=== PATIENT | male | born 1940 | race Caucasian/White ===

== ENCOUNTER 2019-06-26 10:35 | Outpatient (CLI) | payer MEDICARE, OTHER ==
[~2019-06-26] VITALS: Ht 170.2 cm; Wt 80.9 kg
--- NOTE | ~2019-06-26 | HEMODYNAMI ---
PATIENT:JAVAD LEMOS MEDICAL RECORD: [id number] : 36 LOCATION:[facility] ADMISSION DATE: 06/26/19 Generatedon:06/26/201913:25 Patient name: JAVAD LEMOS Patient #: [id number] SSN: D OB: 1940 Date of study: 06/26/2019 Page: Of Hemodynamic Procedure Report Patient Data Patient Demographics Procedure consent was obtained First Name: JAVAD Gender: Male Last Name: CANELO : 1940 [facility] Initial: E Age: 79 year(s) Patient #: [id number] Race: Additional ID: [id number] Contact details [address]: [address] [place] [address] State: [place] City: [place] Zip code: [address] Past Medical History Allergies: No known allergies Admission Admission Data Admission Date: 06/26/2019 Admission Time: 10:35 Admit Source: Other Procedure Procedure Types Cath Procedure Diagnostic Procedure Cardioversion External Procedure Description Procedure Date Procedure Date: 06/26/2019 Procedure Start Time: 13:11 Procedure End Time: 13:22 Procedure Staff Name Function León Sanchez MD Performing Physician Ronny Lewis RN Nurse Jonathon Aguilera RT Monitor Lalo Paul RN Monitor Dusty Alejo MD Additional personnel Procedure Data Procedure Complications No complications Procedure Medications Medication Administration Route Dosage Oxygen etCO2 Nasal cannula 2 l/min Refer to Anesthesia Notes for Sedation Medications Hemodynamics Rest Heart Rate: 61 (bpm) Snapshots Pre Cath Intra NCS Post Cath Vital Signs Time Heart Resp SPO2 etCO2 NIBP Rhythm Pain Sedation Rate (ipm) (%) (mmHg) (mmHg) Status Level (bpm) 13:10:14 72 13 100 26.3 124/67(0) NSR (Missing) 10(A) 13:12:30 42 14 88 21.8 96/54(85) NSR (Missing) 9(A) 13:13:47 54 11 98 27.8 110/67(91) NSR (Missing) 9(A) 13:17:16 52 15 99 26.3 98/65(81) NSR (Missing) 10(A) 13:21:24 51 10 99 43.6 104/62(81) NSR (Missing) 10(A) Medications Time Medication Route Dose Verified Delivered Reason Notes Effective ness by by 13:05:10 Oxygen etCO2 2 León Buffie used for Nasal l/min Daniel Paul RN procedure cannula 13:05:53 Refer to León Lalo Anesthesia Daniel Paul RN Notes for Sedation Medications Procedure Log Time Note 12:40:04 Lalo Paul RN sent for patient. Start room use. 12:47:14 Informed consent obtained and on chart 12:47:23 Admit Source: Other 12:47:56 Procedure Status Cardioversion. 12:47:58 Time tracking: Regular hours (M-F 7:00 - 5:00) 12:48:01 Plan of Care:Hemodynamics will remain stable., Cardiac rhythm will remain stable., Comfort level will be maintained., Respiratory function will remain adequate., Patient/ family verbilizes understanding of procedure., Procedure tolerated without complication., Recovers from procedure without complications.. 12:50:01 H&P Date Dictated: 06/20/2019 Within 30 days and on chart., H&P Addendum completed by physician on day of procedure. (MUST COMPLETE FOR ALL OUTPATIENTS). 12:50:13 Patient allergic to No known allergies 12:59:04 Patient arrived from Pre/Post Procedure Room to CCL 3. Patient remains on bed/stretcher for procedure. 12:59:05 Warm blankets applied, and devin hugger turned on for patient comfort. 12:59:06 Correct patient and procedure confirmed by team. 12:59:07 ECG and BP/O2 sat monitors applied to patient. 13:00:36 Quick Combo opened to sterile field. 13:00:51 Pre-procedure instructions explained to patient. 13:00:52 Pre-op teaching completed and patient verbalized understanding. 13:00:54 Family in patients room. 13:00:56 Patient NPO since Midnight. 13:05:10 Oxygen 2 l/min etCO2 Nasal cannula was administered by Lalo Paul RN; used for procedure; 13:05:53 Refer to Anesthesia Notes for Sedation Medications was administered by Lalo Paul RN; ; 13:06:54 Dusty Alejo MD present and monitoring patient for TIVA. 13:07:02 Vital chart was started 13:07:04 Baseline sample Acquired. 13:07:28 Rhythm: atrial fibrillation 13:07:30 Full Disclosure recording started 13:07:38 Is the patient allergic to Iodine/contrast media? No. 13:07:40 Is patient on blood thinner?Yes 13:07:45 ACC The patient was administered the following blood thiners within the last 24 hours: Xarelto 13:07:47 Patient diabetic? Yes. 13:07:48 If diabetic: On Metformin? Yes 13:07:51 If on Metformin: Last Dose? 06/26/2019 13:07:54 Previous problem with sedation/anesthesia? No ? 13:07:55 Snore? Yes 13:07:58 Sleep apnea? Yes 13:07:59 Deviated septum? No 13:08:00 Opens mouth fully? Yes 13:08:01 Sticks out tongue? Yes 13:08:03 Airway obstruction? No ? 13:08:06 Dentures? No ? 13:08:13 Patient pain scale 0/10 ?. 13:08:22 IV patent on arrival in left forearm with 0.9% NaCl at KVO. 13:08:24 Lab results completed and on chart. 13:08:29 Alarms reviewed by Yesenia Langley 13:08:37 Quick combo pads placed on patients chest and back. 13:08:52 --------ALL STOP TIME OUT------ 13:08:53 Final Timeout: patient, procedure, and site verified with staff and physician. All members of the team are in agreement. 13:09:00 Physical assessment completed. ASA score P 3 - A patient with severe systemic disease as per León Sanchez MD. 13:09:03 Sedation plan: TIVA Medication:Propofol 13:11:16 Procedure started. 13:11:28 Defibrillator synced and charged to 200 Joules. 13:12:03 Shock delivered. 13:12:14 Patient cardioverted to sinus rhythm . 13:13:06 Procedure ended.(Physican Out) 13:14:38 Post-procedure physical assessment completed. ASA score P 3 - A patient with severe systemic disease as per León Sanchez MD. 13:16:20 Post procedure rhythm: sinus bradycardia 13:16:25 Post procedure instruction explained to patient.Patient verbalizes understanding. 13:16:26 Patient needs reinforcement of post procedure teaching. 13:16:37 Procedure and supply charges have been captured, reviewed, submitted and are correct. 13:16:39 Procedure Complication : No complications 13:22:31 Vital chart was stopped 13:22:32 See physician's report for complete and final results. 13:22:34 Report given to Pre/Post Procedure Room. 13:22:37 Patient transfered to Pre/Post Procedure Room with Stretcher. 13:22:40 Procedure ended. 13:22:40 Full Disclosure recording stopped 13:22:48 End room use (Document Last) Device Usage Item Manufacture Quantity Catalog Hospital Part Current Minimal Lot# / Name Number Charge Number [facility] [place] ct# Code [facility] 1 [id number] Combo Signature Audit [place] Stage Time Signature Unsigned Intra-Procedure 06/26/2019 Jonathon Aguilera 1:24:54 PM RT(R) Signatures Performing Physician : Signature : León Sanchez MD Date : Time : Nurse : Ronny Lewis Signature : RN Date : Time : Monitor : Jonathon Aguilera RT Signature : Date : Time : Monitor : Lalo Paul RN Signature : Date : Time : [facility] [address] [place] [address]
[~2019-06-26 10:35] MED LIST: BABY ASPIRIN81 MG PO; COLACE100 MG PO; CORDARONE200 MG PO; FISH OIL 1,2001 CAP PO; GLUCOPHAGE500 MG PO; LEVOTHROID75 MCG PO; PLAVIX75 MG PO; SENOKOT-S TABLE1 TAB PO; TOPROL XL25 MG PO; ZOCOR40 MG PO
[2019-06-26] MEDS ORDERED: BETAPACE 80 MG80 MG PO (11:02)
[2019-06-26] MEDS ORDERED: PRAVACHOL20 MG PO (11:02)
[2019-06-26] MEDS ORDERED: XARELTO15 MG PO (11:05)
[2019-06-26 11:19] VITALS: BP 146/87; Ht 170.2 cm; Wt 80.9 kg
[2019-06-26 11:25] LABS: BASOPHILS 0.8 % (0-2); EOSINOPHILS 4.8 % (0-7); HEMATOCRIT 43.7 % (42.0-54.0); HEMOGLOBIN 14.8 g/dL (13.5-17.5); IMMATURE GRANULOCYTES 0.4 % (0-5); LYMPHOCYTES 42.9 % (15-50); MCHC 33.9 g/dL (31.0-37.0); MCV 88.5 fL (80.0-100.0); MEAN PLATELET VOLUME 9.8 fL (7.4-10.4); MONOCYTES 11.7 % (2-11); NEUTROPHILS 39.4 % (40-80); PLATELET COUNT 158 10x3/uL (130-400); RBC 4.94 10x6/uL (4.20-6.10); RDW 14.2 % (11.5-14.5); WBC 5.2 10x3/uL (4.8-10.8)
[2019-06-26 11:33] LABS: CALC OSMOLALITY 281 mosm/kg (275-300); CARBON DIOXIDE 31.4 mmol/L (21.0-32.0); CHLORIDE - SERUM 102 mmol/L (98-107); GLUCOSE 138 mg/dL (74-106); POTASSIUM - SERUM 4.4 mmol/L (3.5-5.1); SODIUM 139 mmol/L (136-145); UREA NITROGEN 17 mg/dL (7-18); eGFR NON AFRICAN AMERICAN 76 mL/min (90-120)
[2019-06-26 11:42] LABS: INR 1.52 (0.85-1.17); PROTIME 17.7 SECONDS (11.6-15.0)
--- NOTE | 2019-06-26 13:25 | NUR ---
PT RECEIVED VIA STRETCHER FROM [employer] [facility]. PT IN SINUS PAULY RATE 53, BP 116/62, O2 SAT 97 ON ROOM AIR. PT DENIES ANY CHEST PAIN OR DISCOMFORT. IV PATENT INFUSING VIA L ARM. MONITORS IN PLACE. CALL LIGHT IN REACH, AT BEDSIDE.
--- NOTE | 2019-06-26 13:35 | NUR ---
SANDWICH TRAY SERVED, PT DENIES OTHER NEEDS AT THIS TIME
--- NOTE | 2019-06-26 13:59 | NUR ---
PT SITTING UP WATCHING TV. HR REMAINS IN SINUS PAULY, RATE 52. NO C/O PAIN OR DISCOMFORT. TOLERATED FOOD TRAY W/O NAUSEA. CALL LIGHT IN REACH, AT BEDSIDE
--- NOTE | 2019-06-26 14:20 | NUR ---
DR HUNT AT BEDSIDE, DISCUSSED W PT FOLLOW UP CARE AND PROCEDURE RESULTS. [id number] DISCHARGE INSTRUCTIONS REVEIWED W PT AND , BOTH VERBALIZED UNDERSTANDING. IV REMOVED W CATH INTACT, MONITORS REMOVED AND PT UP TO DRESS FOR DISCHARGE.
--- NOTE | 2019-06-26 14:38 | NUR ---
SAMPLES OF XERALTO GIVEN PER DR HUNT'S NURSE AT OFFICE. PT DISCHARGED TO PRIVATE VEHICLE W . PT HAS ALL BELONGINGS.
== END 2019-06-26 14:35 | disposition home or self-care (01) ==
LOC: D.CATH 10:35
PROVIDERS: ATTEND Internal Medicine Cardiovascular Disease
DX: I48.91 Unspecified atrial fibrillation (principal); Z01.812 Encounter for preprocedural laboratory examination